=== PATIENT | female | born 1980 | race Caucasian/White ===

== ENCOUNTER 2022-08-23 08:48 | Outpatient (CLI) | payer OTHER ==
[~2022-08-23 08:48] MED LIST: DIAMOX; OMEPRAZOLE20 M1; PHENERGAN; PREVACID30 MG; TOPROL XL25 M1; [UNRECOGNIZED DRUG - OTHER]
== END 2022-08-23 08:53 | disposition home or self-care (01) ==
LOC: RX STUDY 08:48
PROVIDERS: ATTEND Obstetrics & Gynecology Reproductive Endocrinology
DX: N94.89 Other specified conditions associated with female genital organs and menstrual cycle (principal)